=== PATIENT | female | born 1955 | race African-American/Black ===

== ENCOUNTER 2020-01-09 13:36 | Observation (INO) ==
[2020-01-09] MEDS ORDERED: Naloxone 0.4 MG/ML INJ IVP PRN (14:07)
[2020-01-09] MEDS ORDERED: Ondansetron 4 MG/2 ML VIAL IVP PRN (14:07)
[2020-01-09] MEDS ORDERED: Dextrose Gel 15 GM/37.5 ML TUBE PO PRN ×2 (14:10)
[2020-01-09] MEDS ORDERED: *HR* Dextrose 50 % in Water (Syg) 50 ML SYRINGE IVP PRN (14:10)
[2020-01-09] MEDS ORDERED: D5% in Water 1,000 ML IVC PRN (14:10)
[2020-01-09] MEDS ORDERED: Nitroglycerin 0.4 MG TAB.SUBL SL PRN (14:11)
[2020-01-09 15:27] VITALS: BP 149/91
[2020-01-09] MEDS ORDERED: Insulin LISPRO 300 UNITS/3 ML VIAL SQ SCH ×2 (16:30→21:00)
[2020-01-09] MEDS ORDERED: *HR* OxyCODONE/APAP 10/325 TABLET PO PRN (17:00)
[2020-01-09] MEDS ORDERED: Insulin DETEMIR 100 UNIT/ML X5UNITS SQ SCH (21:00)
[2020-01-09] MEDS ORDERED: *HR* Heparin 5,000 UNIT/ML VIAL SQ SCH (22:00)
[2020-01-10] MEDS ORDERED: Aspirin Enteric Coated 81 MG Tablet PO SCH (09:00)
[2020-01-10] MEDS ORDERED: lisinopriL 5 MG TABLET PO SCH (09:00)
[2020-01-10] MEDS ORDERED: Latanoprost 2.5 ML BOTTLE BOTH EYES SCH (09:00)
== END 2020-01-09 16:30 | disposition left against medical advice (07) ==
LOC: EMEROOARM 13:36 → 3BNU 13:36
PROVIDERS: ADMIT Student in an Organized Health Care Education/Training Program; ATTEND Student in an Organized Health Care Education/Training Program